=== PATIENT | male | born 1990 | race Caucasian/White ===

== ENCOUNTER 2017-02-19 22:43 | Emergency (ER) | payer SELFPAY ==
[~2017-02-19] VITALS: Ht 170.2 cm; Wt 72.6 kg
--- NOTE | 2017-02-19 22:58 | NUR ---
PATIENT DENIES ANY MEDICAL COMPLAINT. DENIES SI,N/V,SOB CP. PATIENT DOES NOT WANT TO BE SEEN BY MD
--- NOTE | 2017-02-19 23:02 | NUR ---
Patient eloped from facility. ER physician notified.
== END 2017-02-19 23:15 | disposition left against medical advice (07) ==
LOC: ER 22:44
DX: Z53.21 Procedure and treatment not carried out due to patient leaving prior to being seen by health care provider (principal)
CPT/HCPCS: A4663

== ENCOUNTER 2017-07-05 07:42 | Inpatient (IN) | payer MEDICAID ==
[~2017-07-05] VITALS: Ht 167.6 cm; Wt 52.2 kg
[2017-07-05] MEDS ORDERED: CEFTRIAXONE 1 G in IV DEXTROSE 5% 50 ML IV ONE (07:56)
[2017-07-05] MEDS ORDERED: DEXAMETHASONE SOD PHOSPHATE 4 MG INJ IV ONE (07:56)
[2017-07-05] MEDS ORDERED: ONDANSETRON IV *ER 4 MG/2 ML VIAL IV ONE (07:59)
[2017-07-05] MEDS ORDERED: MORPHINE SULFATE 2 MG/1 ML DISP.SYRIN IV ONE (08:00)
[2017-07-05] MEDS ORDERED: IV NS 1000 ML 1,000 ML IV ONE ×2 (08:00→10:15)
[2017-07-05] MEDS ORDERED: IV NORMAL SALINE 250 ML IV ONE (08:21)
[2017-07-05] MEDS ORDERED: IOHEXOL 300MG/ML 100 ML INFUS..BTL ONE (08:21)
[2017-07-05 08:25] LABS: BASOPHILS # (AUTO) 0.1 K/uL (0.0-8.0); BASOPHILS % (AUTO) 0.5 % (0.0-2.0); EOSINOPHILS % (AUTO) 0.4 % (0.0-7.0); HEMATOCRIT 39.9 % (36.7-47.1); HEMOGLOBIN 13.4 g/dL (12.5-16.3); LYMPHOCYTES # (AUTO) 1.3 K/uL (20.0-40.0); MEAN CORPUSCULAR HEMOGLOBIN 28.2 uug (23.8-33.4); MEAN CORPUSCULAR HGB CONC 34 g/dL (32.5-36.3); MEAN CORPUSCULAR VOLUME 84.1 fL (73.0-96.2); MONOCYTES # (AUTO) 1.2 K/uL (2.0-10.0); MONOCYTES % (AUTO) 9.4 % (0.0-11.0); NEUTROPHILS % (AUTO) 79.7 % (38.5-71.5); PLATELET COUNT (AUTO) 336 K/uL (152-348); RED BLOOD CELL COUNT(AUTO) 4.74 MIL/uL (4.06-5.63); WHITE BLOOD COUNT (AUTO) 12.6 K/uL (3.6-10.2)
[2017-07-05] MEDS ORDERED: ONDANSETRON 4 MG/2 ML VIAL ONE (08:28)
[2017-07-05] MEDS ORDERED: DEXAMETHASONE SOD PHOSPHATE 10 MG INJ ONE (08:28)
[2017-07-05] MEDS ORDERED: MORPHINE SULFATE 4 MG/1 ML DISP.SYRIN ONE (08:28)
[2017-07-05] MEDS ORDERED: CEFTRIAXONE 1 G VIAL ONE (08:28)
[2017-07-05 08:32] LABS: POTASSIUM 4.2 mmol/L (3.5-5.1)
--- NOTE | 2017-07-05 08:35 | NUR ---
SALINE LOCK PLACED, MEDS ADMININISTERED, ROCEFIN IVPB AND 1L 0.9 NS INFUSING. PT POSITIONED FOR COMFORT.
[2017-07-05 08:38] LABS: BILIRUBIN,TOTAL 0.5 mg/dL (0.2-1.0); TOTAL PROTEIN, SERUM 8.4 g/dL (6.4-8.2)
--- NOTE | 2017-07-05 08:48 | NUR ---
PT TO CT SCAN. PT SIGNED CONTRAST CONSENT.
[2017-07-05] MEDS ORDERED: MAGNESIUM HYDROXIDE 30 ML LIQUID UDC PO PRN (10:15)
[2017-07-05] MEDS ORDERED: Z GUARD REMEDY PASTE 57 GM TUBE TOP PRN (10:15)
[2017-07-05] MEDS ORDERED: MORPHINE SULFATE 2 MG/1 ML DISP.SYRIN IV PRN (10:15)
[2017-07-05] MEDS ORDERED: HYDROCODONE/APAP 5-325MG TABLET PO PRN (10:15)
[2017-07-05] MEDS ORDERED: ACETAMINOPHEN 325 MG TABLET PO PRN (10:15)
[2017-07-05] MEDS ORDERED: ONDANSETRON 4 MG/2 ML VIAL IV PRN (10:15)
[2017-07-05] MEDS ORDERED: MORPHINE SULFATE 4 MG/1 ML DISP.SYRIN IV PRN (10:45)
--- NOTE | 2017-07-05 10:45 | NUR ---
MSE COMPLETED, ADMIT ORDER WRITTEN, BELONGING LIST DONE, SBAR REPORT TO BONI DIXON 2ND FLOOR RN. PT TRANSPORTED V[facility].
--- NOTE | 2017-07-05 11:00 | NUR ---
RECEIVED NEW ADMIT PT FROM ER VIA GURNEY ACCOMPANIED BY ER NURSE. SBAR REPORT RECEIVED PRIOR. PATIENT IN STABLE CONDITION, A AND O X4, AMBULATORY, NO COMPLAINTS OF PAIN AND DISCOMFORT NOTED. ADMISSION ORDERS NOTED AND CARRIED OUT. NURSING ADMISSION ASSESSMENTS DONE. WILL CONTINUE TO MONITOR CLOSELY
[2017-07-05 11:20] VITALS: BP 111/67
[2017-07-05] MEDS: methylPREDNISolone SOD SUCC 40 MG/ML VIAL IV SCH ×3 (13:02→23:34)
[2017-07-05 15:08] VITALS: BP 109/65
--- NOTE | 2017-07-05 18:00 | NUR ---
NO IV ACCESS, SOLU-MEDROL NOT GIVEN. DR. TAVERAS AWARE.
--- NOTE | 2017-07-05 18:56 | NUR ---
UNABLE TO GET IV ACCESS ON PATIENT. TRIED MULTIPLE TIMES. INFORMED DR. TAVERAS AWAITING CALLBACK FOR FURTHER ORDERS. WILL ENDORSE ACCORDINGLY.
--- NOTE | 2017-07-05 19:30 | NUR ---
Received patient laying comfortably in bed. Sleeping evidence of loud snoring. Per AM Nurse, no IV site. Midline order placed and scheduled at 23:00. Safety initiated. Call light within reach. Room is left clutter free. Will continue to monitor.
[2017-07-05 20:00] VITALS: BP 94/54
--- NOTE | 2017-07-05 23:15 | NUR ---
Midline inserted by Vinny. Tolerated well. IVF started.
[2017-07-05] MEDS: IV NS 1000 ML 1,000 ML IV PRN (23:34)
[2017-07-06 04:33] VITALS: BP 94/52
[2017-07-06] MEDS: methylPREDNISolone SOD SUCC 40 MG/ML VIAL IV SCH ×4 (05:05→23:42)
--- NOTE | 2017-07-06 05:37 | NUR ---
Patient slept t/o shift. No acute distress noted. Vital signs stable. No fever. Noted excessive diaphoresis. Safety and comfort measures maintained t/o shift. All meds given as ordered. All needs met.
--- NOTE | 2017-07-06 07:00 | NUR ---
RECEIVED PATIENT IN BED ASLEEP. A AND O X 4. NO ACUTE DISTRESS NOTED. NON PRODUCTIVE COUGH PRESENT. DENIES ANY PAIN/DISCOMFORT. WITH MIDLINE ON THE SONYA #20, INTACT AND PATENT PATIENT WAS SWEATING THROUGHOUT THE NIGHT AND DRESSING OF MIDLINE NEEDED TO BE REINFORCED TO PREVENT DISLODGEMENT PER ALYSSA RN. MIDLINE SECURE AND FLUSHING WELL. COMFORT MEASURES PROVIDED. NEEDS ATTENDED AND ANTICIPATED. WILL CONTINUE TO MONITOR CLOSELY.
[2017-07-06 07:12] LABS: BASOPHILS % (AUTO) 0.2 % (0.0-2.0); HEMATOCRIT 41.5 % (36.7-47.1); LYMPHOCYTES # (AUTO) 0.8 K/uL (20.0-40.0); LYMPHOCYTES % (AUTO) 7.9 % (20.5-51.5); MEAN CORPUSCULAR HEMOGLOBIN 28.4 uug (23.8-33.4); MEAN CORPUSCULAR HGB CONC 34 g/dL (32.5-36.3); MEAN CORPUSCULAR VOLUME 84.3 fL (73.0-96.2); MONOCYTES # (AUTO) 0.2 K/uL (2.0-10.0); MONOCYTES % (AUTO) 1.7 % (0.0-11.0); NEUTROPHILS # (AUTO) 9.7 K/uL (1.8-8.9); NEUTROPHILS % (AUTO) 90.2 % (38.5-71.5); PLATELET COUNT (AUTO) 384 K/uL (152-348); RED BLOOD CELL COUNT(AUTO) 4.92 MIL/uL (4.06-5.63); WHITE BLOOD COUNT (AUTO) 10.7 K/uL (3.6-10.2)
[2017-07-06 07:26] LABS: CREATININE 0.9 mg/dL (0.6-1.3); MAGNESIUM 2.3 mg/dL (1.8-2.4); PHOSPHOROUS 4.8 mg/dL (2.5-4.9); POTASSIUM 5.1 mmol/L (3.5-5.1)
--- NOTE | 2017-07-06 08:00 | NUR ---
IV PUMP ALARM STARTED GOING OFF, ASSESSED PATIENT'S SONYA MIDLINE, HAD DIFFICULTY FLUSHING. TRIED TO FLUSH x 2. NO BLOOD RETURN NOTED. INFORMED NICHOLAS CHARGE NURSE. WILL CONTINUE TO MONITOR CLOSELY.
--- NOTE | 2017-07-06 09:15 | NUR ---
ROCEPHIN 1GM IVATB SCHEDULED TO BE GIVEN AT 0900, REASSESSED MIDLINE PRIOR TO ADMINISTRATION. MIDLINE SEEMED PATENT, FLUSHED TWICE WITH NO DIFFICULTY, BLOOD RETURN NOTED. HANGED ROCEPHIN 1 GM IVATB. WILL CONTINUE TO MONITOR.
[2017-07-06] MEDS: CEFTRIAXONE 1 G in IV DEXTROSE 5% 50 ML IV SCH (09:16)
--- NOTE | 2017-07-06 10:00 | NUR ---
IV PUMP ALARM WENT OFF AGAIN, REASSESSED MIDLINE, HAD DIFFICULTY FLUSHING WITH NO BLOOD RETURN, INFORMED NICHOLAS CHARGE NURSE, CAME TO ASSESS AND FLUSH MIDLINE, UNABLE. ROCEPHIN 1 GM STOPPED. WILL FOLLOW UP AND CONTINUE TO MONITOR.
[2017-07-06 11:44] VITALS: BP 104/59
--- NOTE | 2017-07-06 13:19 | NUR ---
reinserted midline #18 by vee oneil, intact and patent, with blood return noted. continued rocephin 1gm ivatb and administered solumedrol, well tolerated. will continue to monitor closely.
[2017-07-06 15:06] VITALS: BP 115/56
--- NOTE | 2017-07-06 19:30 | NUR ---
Received patient awake, watching TV at this time. Denies any pain/discomfort. Harsh voice noted due to sore throat. Continue care as planned.
[2017-07-06 20:00] VITALS: BP 96/53
[2017-07-07 05:00] VITALS: BP 99/47
--- NOTE | 2017-07-07 05:58 | NUR ---
Slept well. No complaint presented throughout the night. All needs attended and met. No significant event reported all night. Continue care as planned
[2017-07-07] MEDS: methylPREDNISolone SOD SUCC 40 MG/ML VIAL IV SCH ×2 (06:02→12:09)
[2017-07-07 06:45] LABS: BASOPHILS % (AUTO) 0.3 % (0.0-2.0); HEMATOCRIT 39.1 % (36.7-47.1); HEMOGLOBIN 12.7 g/dL (12.5-16.3); LYMPHOCYTES # (AUTO) 1.1 K/uL (20.0-40.0); LYMPHOCYTES % (AUTO) 8.5 % (20.5-51.5); MEAN CORPUSCULAR HEMOGLOBIN 27.9 uug (23.8-33.4); MEAN CORPUSCULAR HGB CONC 33 g/dL (32.5-36.3); MEAN CORPUSCULAR VOLUME 85.7 fL (73.0-96.2); MONOCYTES # (AUTO) 0.6 K/uL (2.0-10.0); MONOCYTES % (AUTO) 4.9 % (0.0-11.0); NEUTROPHILS # (AUTO) 11.4 K/uL (1.8-8.9); NEUTROPHILS % (AUTO) 86.3 % (38.5-71.5); PLATELET COUNT (AUTO) 392 K/uL (152-348); RED BLOOD CELL COUNT(AUTO) 4.56 MIL/uL (4.06-5.63); WHITE BLOOD COUNT (AUTO) 13.2 K/uL (3.6-10.2)
[2017-07-07 06:58] LABS: CREATININE 0.9 mg/dL (0.6-1.3); MAGNESIUM 2.1 mg/dL (1.8-2.4); PHOSPHOROUS 3.5 mg/dL (2.5-4.9); POTASSIUM 4.6 mmol/L (3.5-5.1)
--- NOTE | 2017-07-07 07:45 | NUR ---
IN BED DOZING ON AND OFF ALERT AND ORIENTED STATED COMFORTABLE AT THIS TIME DID NOT WANT ME TO CONNECT HIS IVF FLUID STATED THAT HE IS DRINKING ENOUGH AND BESIDES DID NOT WANT TO BE BOTHERED AT THIS TIME MID LINE RIGHT UPPER ARM REMAINS INTACT WITH NO S/S OF INFILTERATION ON SITE MADE COMFORTABLE AND WILL CONTINUE TO OBSERVE
[2017-07-07] MEDS: CEFTRIAXONE 1 G in IV DEXTROSE 5% 50 ML IV SCH (08:53)
--- NOTE | 2017-07-07 09:00 | NUR ---
PATIENT HAS DUE ANTIBIOTICS DUE AT THIS TIME SO CONNECTED AND INFUSING WITH THE IVF WITH NO ADVERSE OR ALLERGIC REACTIONS AT THIS TIME
[2017-07-07] MEDS: IV NS 1000 ML 1,000 ML IV PRN (10:49)
[2017-07-07 11:42] VITALS: BP 115/51
[2017-07-07 12:51] VITALS: BP 115/51
--- NOTE | 2017-07-07 14:00 | NUR ---
ORDER NOTED TO DISCHARGE PATIENT HOME TODAY SPOKE WITH HIM AND HE STATED THAT HIS FRIEND EUGENE WILL BE ABLE TO PICK HIM UP AND THAT HE WILL STAY WITH HIM FOR A WHILE BEFORE DECIDING ON WHERE TO GO.NEHA REMOVED AND HE STATED THAT HIS FRIEND WILL BE HERE ABOUT 1500
[2017-07-07] MEDS ORDERED: AMOX1TAB16 PO (14:05)
--- NOTE | 2017-07-07 15:00 | NUR ---
PATIENTS FRIEND EUGENE IS NOT HERE YET BUT PATIENT WANTS TO BE DISCHARGED BECAUSE HE STATED THAT HE IS ON THE WAY AND WANTS TO START GOING DOWNSTAIRS TO MEET HIM RATHER THAT WAITING FOR HIM UP HERE.PATIENT IS NOW DISCHARGED WITH DISCHARGE INSTRUCTIONS AND PRESCRIPTIONS AND HE WAS INSTRUCTED TO TAKE HIS MEDICATIONS ORDERED AND TO FOLLOW UP WITH HIS PRIVATE DOCTOR WITHIN ONE WEEK AND HE EXPRESSED UNDERSTANDING.
== END 2017-07-07 15:00 | disposition home or self-care (01) | DRG 720 ==
LOC: ER 07:42 → MED 10:34
PROVIDERS: ADMIT Internal Medicine; ATTEND Internal Medicine
PROC: 05H533Z Insertion of Infusion Device into Right Subclavian Vein, Percutaneous Approach (ICD-10-PCS; principal; 2017-07-05)
DX: A41.9 Sepsis, unspecified organism (principal); E44.0 Moderate protein-calorie malnutrition; E88.09 Other disorders of plasma-protein metabolism, not elsewhere classified; E87.1 Hypo-osmolality and hyponatremia; J36 Peritonsillar abscess; Z59.0 Homelessness; Z68.1 Body mass index [BMI] 19.9 or less, adult; E86.1 Hypovolemia; J03.00 Acute streptococcal tonsillitis, unspecified
CPT/HCPCS: 36415; 36569; 70491; 83735; 84100; 85025; 92610; A4663; J0696; J1100; J2270; J2405; J2920; J7030; J7050; J7060; Q9967

== ENCOUNTER 2017-10-02 06:39 | Emergency (ER) | payer MEDICAID ==
[~2017-10-02] VITALS: Ht 170.2 cm; Wt 68.0 kg
[~2017-10-02 06:39] MED LIST: AMOX1TAB16 PO
[2017-10-02] MEDS ORDERED: DEXAMETHASONE SOD PHOSPHATE 4 MG INJ IM ONE (07:45)
[2017-10-02] MEDS ORDERED: PENICILLIN G BENZATHINE 2.4 MMU/4 ML DISP.SYRIN IM ONE (07:45)
--- NOTE | 2017-10-02 08:01 | NUR ---
MSE COMPLETED, BICILLIN IM TO LEFT GLUTT, DECADRON IM TO LEFT DELTOID.
--- NOTE | 2017-10-02 08:09 | NUR ---
MEDS ADMINISTERED , NO ALLERGIC REACTIONS NOTED. PT WAS THEN D/C'D HOME, ACI/RX X1 GIVEN, OPT AMBULATED W/O DIFF/TOOK ALL BELONGINGS.
[2017-10-02 08:12] VITALS: BP 121/61
== END 2017-10-02 08:13 | disposition home or self-care (01) ==
LOC: ER 06:39
DX: J02.0 Streptococcal pharyngitis (principal); Z59.0 Homelessness; F17.200 Nicotine dependence, unspecified, uncomplicated
CPT/HCPCS: A4663; J1100

== ENCOUNTER 2019-05-19 11:57 | Inpatient (IN) | payer OTHER ==
[2019-05-19] VITALS (7 sets, daily range): BP systolic 107–130; BP diastolic 50–81
[~2019-05-19] VITALS: Ht 167.6 cm; Wt 75.7 kg
[2019-05-19] MEDS ORDERED: NALOXONE 2 MG/2 ML SYRINGE ONE (11:59)
[2019-05-19] MEDS ORDERED: IV NORMAL SALINE 1000 ML BAG IV ONE ×4 (12:00→15:15)
[2019-05-19] MEDS ORDERED: NALOXONE HCL 0.4 MG/ML AMPUL IV ONE ×2 (12:15→12:30)
[2019-05-19 12:30] LABS: BASOPHILS % (AUTO) 0.3 % (0.0-2.0); EOSINOPHILS # (AUTO) 0.1 K/uL (0.0-0.7); EOSINOPHILS % (AUTO) 0.7 % (0.0-7.0); HEMATOCRIT 45.2 % (36.7-47.1); HEMOGLOBIN 14.9 g/dL (12.5-16.3); LYMPHOCYTES # (AUTO) 1.9 K/uL (20.0-40.0); LYMPHOCYTES % (AUTO) 22.1 % (20.5-51.5); MEAN CORPUSCULAR HEMOGLOBIN 28.6 uug (23.8-33.4); MEAN CORPUSCULAR HGB CONC 33 g/dL (32.5-36.3); MEAN CORPUSCULAR VOLUME 86.7 fL (73.0-96.2); MONOCYTES # (AUTO) 0.2 K/uL (2.0-10.0); MONOCYTES % (AUTO) 2.7 % (0.0-11.0); NEUTROPHILS # (AUTO) 6.6 K/uL (1.8-8.9); NEUTROPHILS % (AUTO) 74.2 % (38.5-71.5); PLATELET COUNT (AUTO) 229 K/uL (152-348); RED BLOOD CELL COUNT(AUTO) 5.21 MIL/uL (4.06-5.63); WHITE BLOOD COUNT (AUTO) 8.8 K/uL (3.6-10.2)
[2019-05-19] MEDS ORDERED: VANCOMYCIN IV 1,000 MG in IV DEXTROSE 5% 250 ML IV ONE (12:30)
[2019-05-19] MEDS ORDERED: NORMAL SALINE IV PRN (12:30)
[2019-05-19] MEDS ORDERED: PIPERACILLIN SODIUM/TAZOBACTAM 3.375 G in IV DEXTROSE 5% 50 ML IV ONE ×2 (12:30→15:00)
[2019-05-19] MEDS ORDERED: SUCCINYLCHOLINE CHLORIDE 200 MG/10 ML VIAL IV ONE (12:30)
[2019-05-19] MEDS ORDERED: NALOXONE HCL IV PRN (12:30)
[2019-05-19] MEDS ORDERED: PIPERACILLIN/TAZOBACTAM/D5W 50 ML IV ONE (12:30)
[2019-05-19] MEDS ORDERED: ETOMIDATE 20 MG/10 ML VIAL IV ONE (12:30)
[2019-05-19] MEDS ORDERED: VANCOMYCIN IV 200 ML ONE (12:30)
[2019-05-19 12:36] LABS: *CLARITY,URINE CLOUDY (CLEAR); *COLOR,URINE YELLOW (YELLOW); *KETONES,URINE 2+ (NEGATIVE); *UROBILINOGEN,URINE 0.2 E.U./dl (NORMAL); LEUKOCYTE ESTERASE ,URINE NEGATIVE (NEGATIVE); NITRITE, URINE NEGATIVE (NEGATIVE); UGLUCOSE NEGATIVE (NEGATIVE)
[2019-05-19 12:37] LABS: *BLOOD, URINE TRACE (NEGATIVE)
[2019-05-19 12:38] LABS: *BILIRUBIN,URIN 1+ (NEGATIVE)
[2019-05-19 12:42] LABS: ETHANOL < 3 MG/DL (0-0)
[2019-05-19 12:48] LABS: CARBON DIOXIDE 22 mmol/L (21-32); CHLORIDE 102 mmol/L (98-107); CREATININE 1.4 mg/dL (0.6-1.3); GLUCOSE 164 mg/dL (74-106); POTASSIUM 5.9 mmol/L (3.5-5.1); UREA NITROGEN, BLOOD 20 mg/dL (7-18)
[2019-05-19 12:52] LABS: BACTERIA,URINE NONE SEEN /HPF (NONE SEEN); SQUAMOUS EPITHELIAL CELL,UR FEW /HPF (NONE SEEN)
[2019-05-19 12:53] LABS: MUCUS,URINE FEW /LPF (0-FEW); SPERM,URINE MANY /HPF (NONE SEEN)
[2019-05-19] MEDS ORDERED: DILTIAZEM HCL 25 MG IV IV ONE ×2 (13:00→13:15)
[2019-05-19] MEDS ORDERED: DILTIAZEM HCL 25 MG IV ONE (13:01)
[2019-05-19 13:03] LABS: ACETAMINOPHEN < 2.0 ug/mL (10-30); ALANINE AMINOTRANSFERASE 74 U/L (16-63); ALKALINE PHOSPHATASE 103 U/L (50-136); ASPARTATE AMINOTRANSFERASE 78 U/L (15-37); BILIRUBIN,DIRECT 0.1 mg/dL (0.0-0.2); BILIRUBIN,TOTAL 0.8 mg/dL (0.2-1.0); TOTAL PROTEIN, SERUM 8.2 g/dL (6.4-8.2)
[2019-05-19 13:13] LABS: *AMPHETAMINE, URINE POSITIVE (NEGATIVE); *BARBITURATE, URINE NEGATIVE (NEGATIVE); *CANNABINOID, URINE NEGATIVE (NEGATIVE); *COCCAINE, URINE NEGATIVE (NEGATIVE); *OPIATE, URINE POSITIVE (NEGATIVE); *PHENCYCLIDINE SCREEN,URINE NEGATIVE (NEGATIVE)
[2019-05-19] MEDS ORDERED: LABETALOL HCL 100 MG/20 ML VIAL ONE (13:22)
[2019-05-19] MEDS ORDERED: LABETALOL HCL 100 MG/20 ML VIAL IV ONE (13:30)
--- NOTE | 2019-05-19 13:40 | NUR ---
pt awake, lethargic, sneezed couple of times.
--- NOTE | 2019-05-19 13:46 | NUR ---
PT ABLE TO SAY HIS NAME TO BE JOAQUÍN YEUNG, 29 YEARS OLD. UNABLE TO VERBALIZE HIS .
--- NOTE | 2019-05-19 14:47 | NUR ---
PT RESTING, AROUSABLE, STILL ON NON-REBREATHER.KEEP MONOOTORING THE PT. TRANSFER TO CCU PENDING ON ROOM AVAILABILITY AT THIS TIME.
[2019-05-19] MEDS ORDERED: MAGNESIUM HYDROXIDE 30 ML LIQUID UDC PO PRN (15:00)
[2019-05-19] MEDS ORDERED: ACETAMINOPHEN 325 MG TABLET PO PRN (15:00)
[2019-05-19] MEDS ORDERED: ONDANSETRON 4 MG/2 ML VIAL IV PRN (15:00)
[2019-05-19] MEDS ORDERED: HYDROCODONE/APAP 5-325MG TABLET PO PRN (15:00)
[2019-05-19] MEDS ORDERED: Z GUARD REMEDY PASTE 57 GM TUBE TOP PRN (15:00)
--- NOTE | 2019-05-19 15:04 | NUR ---
Clinical pharmacy note-Vancomycin dosing per pharmacy Subjective: To start Vancomycin dosing on this 25 yo male patient for "Documented infection" . Per ER MD note, Acute respiratory failure, Polysubstance abuse, Aspiration pneumonia, Narcotic overdose (waiting for MD note) Objective: BUN 20 Scr 1.4 WBC 8.8 Temp 97.5 ht 165 cm wt 76.6 kg Assessment/Plan: Patient received vanco 1gm IVPB x1 today at 1300 in ED. Will start vanco 1250mg IVPB q15h for predicted vanco trough level of 16.7 mcg/ml at steady state. 1st dose on 05/20 at 0200. Will monitor renal function & adjust the dose if needed. Plan to order vanco trough level before 4th dose (not yet ordered). Will follow
--- NOTE | 2019-05-19 15:16 | NUR ---
HR INCREASED, MD NOTIFIED. PT RESTING, AROUSABLE, APPEARANCE IMPROVED, ABLE TO TALK IN ONE WORD. PT DENEIS ANY PAIN OR NAUSEA AT THIS TIME.
[2019-05-19] MEDS ORDERED: methylPREDNISolone SOD SUCC 125 MG/2 ML VIAL ONE (16:23)
--- NOTE | 2019-05-19 16:25 | NUR ---
PT CONVERTED FROM A-FIB TO SINUS RHYTHM.
[2019-05-19] MEDS ORDERED: methylPREDNISolone SOD SUCC 125 MG/2 ML VIAL IV ONE (16:30)
--- NOTE | 2019-05-19 16:30 | NUR ---
REPLACED THE NON-REBREATHER TO SIMPLE MASK PER MD ORDER, WHILE ER MD AT BEDIDE TO SEE IF THE PT CAN MAINTAIN O2 LEVEL ABOVE 93% PER MD ORDER.
--- NOTE | 2019-05-19 17:00 | NUR ---
PT UNABLE TO MAINTAIN O2 SAT ABOVE 93%. PLACED THE NON-REBREATHER BACK ON PT. IMPROVED THE SAT TO 97%,
--- NOTE | 2019-05-19 18:00 | NUR ---
pt resting, easily arousable, pt on non-rebreather, sat 97%.
--- NOTE | 2019-05-19 19:19 | NUR ---
pt transfered to ccu in stable condition.
--- NOTE | 2019-05-19 19:25 | NUR ---
Admitted a 25 y.o male patient to [facility] Jeronimo Ahuja from ER via [email or web address]: Drug Overdose. Patient sleepy but easily arouses and follows commands fairly well. Able to transfer from gurney to bed by himself. O2 sat on room air 80's; non rebreather mask with 15 L flow administered. Saturations improved. Assessment done. Addendum: 05/19/19 at 2318 by JOSE LADD RN Amended: Links added. Addendum: 05/19/19 at 2320 by JOSE LADD RN Amended: Links added. Addendum: 05/19/19 at 4553 by JOSE LADD RN Amended: Links added.
--- NOTE | 2019-05-19 20:00 | NUR ---
CCU routines discussed with patient. Reoriented to place and time. Vaguely remember what happened. Wants something to drink; advised appropriately. Cooperative. Dr. Albert notified; ordered its ok to give patient ice chips. Addendum: 05/19/19 at 2320 by JOSE LADD RN Amended: Links added. Addendum: 05/19/19 at 2323 by JOSE LADD RN Amended: Links added.
--- NOTE | 2019-05-19 20:15 | NUR ---
Taking ice chips without difficulty, but still very sleepy most of the time. Addendum: 05/19/19 at 3443 by JOSE LADD RN Amended: Links added.
[2019-05-19] MEDS: IV D5 1/2 NS 1000 ML 1,000 ML IV PRN (20:17)
--- NOTE | 2019-05-19 21:00 | NUR ---
Admission data and PMH history completed; information obtained from patient. Still sleepy and have to be awakened at times during data collection. Addendum: 05/19/19 at 2340 by JOSE LADD RN Amended: Links added.
[2019-05-19] MEDS: PIPERACILLIN SODIUM/TAZOBACTAM 3.375 G in IV DEXTROSE 5% 50 ML IV SCH (23:45)
[2019-05-20] VITALS (16 sets, daily range): BP systolic 94–111; BP diastolic 41–71
[2019-05-20] MEDS ORDERED: VANCOMYCIN IV 1,250 MG in IV DEXTROSE 5% 250 ML IV SCH (02:00)
[2019-05-20 05:08] LABS: BASOPHILS % (AUTO) 0.1 % (0.0-2.0); LYMPHOCYTES # (AUTO) 0.5 K/uL (20.0-40.0); LYMPHOCYTES % (AUTO) 5.6 % (20.5-51.5); MEAN CORPUSCULAR HEMOGLOBIN 27.1 uug (23.8-33.4); MEAN CORPUSCULAR HGB CONC 33 g/dL (32.5-36.3); MEAN CORPUSCULAR VOLUME 83.6 fL (73.0-96.2); MONOCYTES # (AUTO) 0.1 K/uL (2.0-10.0); MONOCYTES % (AUTO) 1.5 % (0.0-11.0); NEUTROPHILS # (AUTO) 7.8 K/uL (1.8-8.9); NEUTROPHILS % (AUTO) 92.8 % (38.5-71.5); PLATELET COUNT (AUTO) 185 K/uL (152-348); RED BLOOD CELL COUNT(AUTO) 4.79 MIL/uL (4.06-5.63); WHITE BLOOD COUNT (AUTO) 8.4 K/uL (3.6-10.2)
[2019-05-20 05:21] LABS: ALANINE AMINOTRANSFERASE 48 U/L (16-63); ALKALINE PHOSPHATASE 66 U/L (50-136); ASPARTATE AMINOTRANSFERASE 27 U/L (15-37); BILIRUBIN,DIRECT 0.2 mg/dL (0.0-0.2); BILIRUBIN,TOTAL 0.6 mg/dL (0.2-1.0); CARBON DIOXIDE 23 mmol/L (21-32); CHLORIDE 103 mmol/L (98-107); CHOLESTEROL 65 mg/dL (<200); CREATININE 0.9 mg/dL (0.6-1.3); GLUCOSE 176 mg/dL (74-106); HDL CHOLESTEROL 46 mg/dL (40-60); MAGNESIUM 1.9 mg/dL (1.8-2.4); PHOSPHOROUS 2.9 mg/dL (2.5-4.9); POTASSIUM 4.3 mmol/L (3.5-5.1); TOTAL PROTEIN, SERUM 6.1 g/dL (6.4-8.2); TRIGLYCERIDES < 15 MG/DL (30-150); UREA NITROGEN, BLOOD 12 mg/dL (7-18)
[2019-05-20] MEDS: PIPERACILLIN SODIUM/TAZOBACTAM 3.375 G in IV DEXTROSE 5% 50 ML IV SCH ×4 (05:38→23:08)
[2019-05-20 05:44] LABS: CREATINE KINASE, TOTAL 278 U/L (39-308)
--- NOTE | 2019-05-20 06:00 | NUR ---
O2 changed to NC 3 L. Sat remains above 94%. NAD.
[2019-05-20] MEDS: IV D5 1/2 NS 1000 ML 1,000 ML IV PRN (06:43)
--- NOTE | 2019-05-20 08:20 | NUR ---
called admitting to change name from Jeronimo Ahuja. Patient is awake alert and states that his name is Rose Canela and birthdate 1990.
[2019-05-20] MEDS ORDERED: PANTOPRAZOLE SODIUM 40 MG VIAL IV SCH (09:00)
--- NOTE | 2019-05-20 09:30 | NUR ---
Patient had PT and tolerated well.
--- NOTE | 2019-05-20 12:30 | NUR ---
doctor Parth in the unit making rounds
--- NOTE | 2019-05-20 12:45 | NUR ---
doctor meadows in the unit rounding on patient orders received
--- NOTE | 2019-05-20 13:10 | NUR ---
echo being done at bedside
--- NOTE | 2019-05-20 13:43 | NUR ---
patient miranda discontinued.
--- NOTE | 2019-05-20 14:10 | NUR ---
Clinical pharmacy note-Vancomycin dosing per pharmacy Subjective: To continue Vancomycin dosing on this 25 yo male patient for documented infection(pneumonia, sepsis) . Per ER MD note, Acute respiratory failure, Polysubstance abuse, Aspiration pneumonia, Narcotic overdose . Objective: BUN 12 Scr 0.9 WBC 8.4 Temp 98.4 ht 165 cm wt 76.6 kg Assessment/Plan: Since renal function is improved, will change vanco to 1250mg IVPB q10h for predicted vanco trough level of 16.4 mcg/ml at steady state. 2nd dose on 05/20 at 1400. Will monitor renal function & adjust the dose if needed. Plan to order vanco trough level before 4th dose (ordered for tomorrow at 0930). Will follow
--- NOTE | 2019-05-20 14:36 | NUR ---
report given to yulissa oneil, patient transferred via wheelchair. patient will be going to room [facility].
[2019-05-20] MEDS: VANCOMYCIN IV 1,250 MG in IV DEXTROSE 5% 250 ML IV SCH (14:41)
--- NOTE | 2019-05-20 15:40 | NUR ---
RECEIVED PATIENT FROM ICU VIA WHEELCHAIR. PATIENT IS ALERT AND ORIENTED X3. NO SIGNS OF ACUTE DISTRESS OR SOB. VITAL SIGNS WNL. IVF AND ABX CONTINUED ORDERED. BED LOCKED AND IN LOW POSITION. IV SITE INTACT. IV FLUSHED AND PATENT. CALL LIGHT WITHIN REACH. BELONGINGS WITH PATIENT ENTERED ON BELONGING LIST. WILL CONTINUE TO MONITOR PATIENT FOR SAFETY AND COMFORT.
--- NOTE | 2019-05-20 18:00 | NUR ---
PT RESTING COMFORTABLY IN BED. NO SIGNS OF ACUTE DISTRESS OR SOB NOTED. PT ON O2 AT 2L/M VIA N/C SATS OF 96%. IVF AND ABX RUNNING. PT ALERT AND ORIENTED X3. PT DENIES PAIN AT THIS TIME. WILL GIVE REPORT TO INCOMING SHIFT ACCORDINGLY.
--- NOTE | 2019-05-20 19:15 | NUR ---
RECEIVED PATIENT AWAKE IN BED. PATIENT DENIES SOB/ PAIN/ NAUSEA. IV IN LEFT WRIST FLUSHING, PATENT, AND INTACT. SAFETY PRECAUTIONS IN PLACE. NEEDS ATTENDED. WILL CONTINUE TO MONITOR.
--- NOTE | 2019-05-20 19:30 | NUR ---
RECEIVED PATIENT AWAKE IN BED. PATIENT DENIES SOB OR PAIN. IV IN LEFT FOREARM 20G FLUSHING, PATENT, AND INTACT WITH D5 1/2NS RUNNING AT 125ML/HR. SAFETY PRECAUTIONS IN PLACE. NEEDS ATTENDED. WILL CONTINUE TO MONITOR.
[2019-05-21] MEDS: VANCOMYCIN IV 1,250 MG in IV DEXTROSE 5% 250 ML IV SCH ×3 (00:10→20:04)
[2019-05-21] MEDS: IV D5 1/2 NS 1000 ML 1,000 ML IV PRN ×2 (03:20→15:41)
[2019-05-21] MEDS: PIPERACILLIN SODIUM/TAZOBACTAM 3.375 G in IV DEXTROSE 5% 50 ML IV SCH ×4 (05:01→23:46)
--- NOTE | 2019-05-21 05:42 | NUR ---
PATIENT SLEPT THROUGHOUT THE NIGHT. NO ACUTE CHANGE IN PATIENT CONDITION. SAFETY PRECAUTIONS IN PLACE. WILL ENDORSE ACCORDINGLY.
[2019-05-21 05:49] VITALS: BP 105/58
[2019-05-21 06:34] LABS: BASOPHILS % (AUTO) 0.4 % (0.0-2.0); EOSINOPHILS % (AUTO) 0.6 % (0.0-7.0); HEMATOCRIT 38.4 % (36.7-47.1); HEMOGLOBIN 12.7 g/dL (12.5-16.3); LYMPHOCYTES # (AUTO) 1.6 K/uL (20.0-40.0); LYMPHOCYTES % (AUTO) 29.9 % (20.5-51.5); MEAN CORPUSCULAR HEMOGLOBIN 27.3 uug (23.8-33.4); MEAN CORPUSCULAR HGB CONC 33 g/dL (32.5-36.3); MEAN CORPUSCULAR VOLUME 82.8 fL (73.0-96.2); MONOCYTES # (AUTO) 0.3 K/uL (2.0-10.0); MONOCYTES % (AUTO) 6.6 % (0.0-11.0); NEUTROPHILS # (AUTO) 3.3 K/uL (1.8-8.9); NEUTROPHILS % (AUTO) 62.5 % (38.5-71.5); PLATELET COUNT (AUTO) 174 K/uL (152-348); RED BLOOD CELL COUNT(AUTO) 4.64 MIL/uL (4.06-5.63); WHITE BLOOD COUNT (AUTO) 5.3 K/uL (3.6-10.2)
[2019-05-21 06:44] LABS: CREATININE 0.9 mg/dL (0.6-1.3); PHOSPHOROUS 1.3 mg/dL (2.5-4.9); POTASSIUM 3.4 mmol/L (3.5-5.1)
--- NOTE | 2019-05-21 08:00 | NUR ---
RECEIVED PA RESTING COMFORTABLY IN BED. NO ACUTE DISTRESS NOTED. NO SOB NOTED. PT ALERT AND ORIENTED X3. PT DENIES PAIN AT THIS TIME. BED LOCKED AND IN LOW POSITION. WILL MONITOR FOR SAFETY AND COMFORT.
[2019-05-21] MEDS: PANTOPRAZOLE SODIUM 40 MG TABLET.DR PO SCH (09:18)
--- NOTE | 2019-05-21 10:18 | NUR ---
Clinical pharmacy note-Vancomycin dosing per pharmacy Subjective: To continue Vancomycin dosing on this 25 yo male patient for documented infection(pneumonia, sepsis) . Per ER MD note, Acute respiratory failure, Polysubstance abuse, Aspiration pneumonia, Narcotic overdose . Objective: BUN 11 Scr 0.9 WBC 5.4 Temp 98.6 vanco trough level: 12.4 ht 165 cm wt 76.6 kg Assessment/Plan: Since vanco trough level is 12.4, will change vanco dose to vanco to 1250mg IVPB q9h for predicted vanco trough level of 15 mcg/ml at steady state. 1st dose today at 1030. Will monitor renal function & adjust the dose if needed. Plan to order vanco trough level before 4th dose (not yet ordered). Will follow
[2019-05-21] MEDS ORDERED: NEUTRA PHOS PACKET PO ONE (10:45)
[2019-05-21] MEDS ORDERED: POTASSIUM CHLORIDE 20 MEQ TAB.PRT.SR PO ONE (10:45)
[2019-05-21 11:08] VITALS: BP 127/70
[2019-05-21 16:01] VITALS: BP 131/67
--- NOTE | 2019-05-21 18:00 | NUR ---
PT RESTING COMFORTABLY AT THIS TIME. IV SITE CHANGED TO LEFT WRIST 22 GAUGE. FLUSHED AND INTACT. NO ACUTE DISTRESS NOTED. NO SOB NOTED. WILL GIVE REPORT ACCORDINGLY.
[2019-05-21 20:19] VITALS: BP 128/74
[2019-05-22] MEDS: VANCOMYCIN IV 1,250 MG in IV DEXTROSE 5% 250 ML IV SCH (03:59)
[2019-05-22] MEDS: IV D5 1/2 NS 1000 ML 1,000 ML IV PRN (04:19)
[2019-05-22 06:10] LABS: BASOPHILS % (AUTO) 0.2 % (0.0-2.0); EOSINOPHILS # (AUTO) 0.1 K/uL (0.0-0.7); EOSINOPHILS % (AUTO) 1.4 % (0.0-7.0); HEMATOCRIT 40.6 % (36.7-47.1); HEMOGLOBIN 13.8 g/dL (12.5-16.3); LYMPHOCYTES % (AUTO) 34.9 % (20.5-51.5); MEAN CORPUSCULAR HEMOGLOBIN 28.3 uug (23.8-33.4); MEAN CORPUSCULAR HGB CONC 34 g/dL (32.5-36.3); MEAN CORPUSCULAR VOLUME 83.3 fL (73.0-96.2); MONOCYTES # (AUTO) 0.3 K/uL (2.0-10.0); NEUTROPHILS # (AUTO) 3.3 K/uL (1.8-8.9); NEUTROPHILS % (AUTO) 57.5 % (38.5-71.5); PLATELET COUNT (AUTO) 194 K/uL (152-348); RED BLOOD CELL COUNT(AUTO) 4.88 MIL/uL (4.06-5.63); WHITE BLOOD COUNT (AUTO) 5.7 K/uL (3.6-10.2)
[2019-05-22] MEDS: PANTOPRAZOLE SODIUM 40 MG TABLET.DR PO SCH (06:21)
[2019-05-22] MEDS: PIPERACILLIN SODIUM/TAZOBACTAM 3.375 G in IV DEXTROSE 5% 50 ML IV SCH ×2 (06:21→12:44)
[2019-05-22 06:28] VITALS: BP 139/68
[2019-05-22 06:36] LABS: CREATININE 0.9 mg/dL (0.6-1.3); MAGNESIUM 1.8 mg/dL (1.8-2.4); PHOSPHOROUS 2.4 mg/dL (2.5-4.9); POTASSIUM 3.7 mmol/L (3.5-5.1)
--- NOTE | 2019-05-22 06:41 | NUR ---
Patient slept well. No complaints of pain at this time. All needs attended. Will endorse accordingly
--- NOTE | 2019-05-22 07:10 | NUR ---
RECEIVED PATIENT IN BED ASLEEP, EASY TO WAKE UP, AOX4. DENIES PAIN OR SOB AT THIS TIME. LT. WRIST IV INTACT AND FLUSHING WELL WITH D51/2 NS RUNNING AT 125 CC/HR. SAFETY AND FALL PRECAUTIONS IN PLACE. CALL LIGHT IN REACH. BED IN LOW POSITION AND LOCKED. WILL CONTINUE TO MONITOR.
[2019-05-22 11:30] VITALS: BP 117/63
[2019-05-22] MEDS ORDERED: MULT1TAB73 PO (11:50)
[2019-05-22] MEDS ORDERED: AMOX-430 PO (11:50)
[2019-05-22] MEDS ORDERED: NEUTRA PHOS PACKET PO ONE (12:00)
--- NOTE | 2019-05-22 14:25 | NUR ---
PATIENT DISCHARGED TO HOME-SELF CARE. DISCHARGE INSTRUCTIONS WENT OVER WITH PATIENT AND RX GIVEN TO PATIENT. BELONGINGS LIST WENT OVER WITH PATIENT AND PATIENT LEFT WITH ALL OF HIS BELONGINGS. IV ACCESS REMOVED. ARM BAND REMOVED. PATIENT LEFT IN STABLE CONDITION WITH LEON BAIRD.
== END 2019-05-22 14:25 | disposition home or self-care (01) | DRG 816 ==
LOC: ER 11:58 → EDBD 19:12 → MERGE 19:12 → CCU 19:12 → MEDSURG3 05-20 15:58
PROVIDERS: ADMIT Student in an Organized Health Care Education/Training Program; ATTEND Student in an Organized Health Care Education/Training Program
DX: T40.1X1A Poisoning by heroin, accidental (unintentional), initial encounter (principal); J96.01 Acute respiratory failure with hypoxia; A41.9 Sepsis, unspecified organism; N17.0 Acute kidney failure with tubular necrosis; R65.20 Severe sepsis without septic shock; J69.0 Pneumonitis due to inhalation of food and vomit; G92 Toxic encephalopathy; T43.621A Poisoning by amphetamines, accidental (unintentional), initial encounter; E87.2 Acidosis; F11.10 Opioid abuse, uncomplicated; Y92.009 Unspecified place in unspecified non-institutional (private) residence as the place of occurrence of the external cause; E86.0 Dehydration; F15.10 Other stimulant abuse, uncomplicated; F13.10 Sedative, hypnotic or anxiolytic abuse, uncomplicated; E87.5 Hyperkalemia; M62.82 Rhabdomyolysis; I48.0 Paroxysmal atrial fibrillation
CPT/HCPCS: 36415; 70030-TC; 71045; 80307; 83605; 83735; 84100; 84443; 85025; 85730; 87040; 93005; 93307; A4663; C9113; G0378; G0480; G0480-TC; J2310; J2543; J2930; J3370; J3490; J7030; J7050; J7060

== ENCOUNTER 2022-09-18 14:59 | Emergency (ER) | payer OTHER ==
[~2022-09-18] VITALS: Ht 162.6 cm; Wt 59.0 kg
[~2022-09-18 14:59] MED LIST changes: +AMOX-430 PO; -AMOX1TAB16 PO; +MULT-594 PO
[2022-09-18] MEDS ORDERED: HYDROCODONE/APAP 5-325MG TABLET PO ONE (15:45)
[2022-09-18] MEDS ORDERED: HYDROCODONE/APAP 5-325MG TABLET ONE (15:50)
[2022-09-18] MEDS ORDERED: POLY17PO4 PO ×2 (15:53→16:04)
[2022-09-18] MEDS ORDERED: HYDR30CR79 TP ×2 (15:53→16:04)
[2022-09-18] MEDS ORDERED: HYDR-3974 PO ×2 (15:53→16:04)
--- NOTE | 2022-09-18 16:49 | NUR ---
PT WAS EVALUATED BY DR PÉREZ. PT WAS D/C'd TO HOME. D/C INSTRUCTIONS GIVEN TO THE PT BY DR PÉREZ.
[2022-09-18 16:57] VITALS: BP 142/74
== END 2022-09-18 16:58 | disposition home or self-care (01) ==
LOC: ER 14:59
DX: K62.3 Rectal prolapse (principal); F17.210 Nicotine dependence, cigarettes, uncomplicated; Z59.00 Homelessness unspecified; Z79.899 Other long term (current) drug therapy
CPT/HCPCS: A4663